=== PATIENT | male | born 1985 | race Two or more races ===

== ENCOUNTER 2021-03-23 14:53 | Emergency (ER) | payer MEDICAID ==
[~2021-03-23] VITALS: Ht 180.3 cm; Wt 75.0 kg
[2021-03-23] MEDS ORDERED: T3 PO (17:44)
[2021-03-23] MEDS ORDERED: AMOX-424 MT (17:46)
[2021-03-23 18:06] VITALS: BP 126/77
== END 2021-03-23 18:07 | disposition home or self-care (01) ==
LOC: ER 14:53
DX: S62.317A Displaced fracture of base of fifth metacarpal bone, left hand, initial encounter for closed fracture (principal); Y04.1XXA Assault by human bite, initial encounter; Y08.89XA Assault by other specified means, initial encounter; Y93.89 Activity, other specified; Y92.9 Unspecified place or not applicable
CPT/HCPCS: 29125; 73110; 73130; 99284